=== PATIENT | male | born 1995 | race Caucasian/White ===

== ENCOUNTER 2016-11-14 18:28 | Observation (INO) | payer OTHER ==
[~2016-11-14] VITALS: Ht 175.3 cm; Wt 91.5 kg
[2016-11-14] VITALS (8 sets, daily range): BP systolic 96–120; BP diastolic 46–64; PULSE 65–75; TEMP 98.3–98.6
[2016-11-15 05:56] VITALS: BP 103/53; PULSE 93; TEMP 98
== END 2016-11-15 08:00 | disposition home or self-care (01) ==
LOC: JCC 18:28
DX: K35.80 Unspecified acute appendicitis (principal)
CPT/HCPCS: J0694; J1100; J1885; J2310; J2405; J2543; J2704; J7050; J7120

== ENCOUNTER 2016-11-22 23:08 | Observation (INO) | payer OTHER ==
[~2016-11-22] VITALS: Wt 91.3 kg
[2016-11-22] MEDS ORDERED: PERCOCET 325 MG1 TA2 PO (23:15)
[2016-11-22] MEDS ORDERED: ZOFRAN ODT4 MG PO (23:15)
[2016-11-23 00:49] LABS: BASO % 0.3 % (0.0-2.0); EOS % 0.1 % (0-4.0); GRAN % 78.7 % (42.2-75.2); HEMOGLOBIN 15.5 g/dl (13.5-18.0); LYMPH # 1.8 (1.2-3.4); LYMPH % 14.5 % (20.0-51.0); MEAN CELL VOLUME 87 fl (80.0-100.0); MEAN CORPUSCULAR HEMOGLOBIN 29 pg (27.0-31.0); MEAN CORPUSCULAR HGB CONC 33 g/dl (33.0-37.0); MEAN PLATELET VOLUME 10.3 fl (7.4-10.4); MONO # 0.8 (0.1-0.6); MONO % 6.1 % (1.7-9.3); PLATELET COUNT 240 K/mm3 (130-400); RED BLOOD COUNT 5.38 M/mm3 (4.20-5.60); REDCELL DISTRIBUTION WIDTH-CV 12.6 % (11.5-14.5); WHITE BLOOD COUNT 12.7 K/mm3 (4.8-10.8)
[2016-11-23 00:55] LABS: ADJUSTED CALCIUM 8.9 mg/dL (8.4-10.2); ALANINE AMINOTRANSFERASE 35 U/L (21-72); ALBUMIN 4.7 gm/dL (3.5-5.0); ALKALINE PHOSPHATASE 46 U/L (50-136); ANION GAP 12 mmol/L (7-16); BLOOD UREA NITROGEN 9 mg/dL (9-20); C-REACTIVE PROTEIN < 0.5 mg/dL (0.0-0.9); CALCIUM 9.5 mg/dL (8.4-10.2); CARBON DIOXIDE 25 mmol/L (22-30); CHLORIDE 100 mmol/L (98-107); GLUCOSE 115 mg/dL (74-106); LIPASE 155 U/L (23-300); SODIUM 137 mmol/L (137-145); TOTAL PROTEIN 7.7 gm/dL (6.4-8.2)
[2016-11-23 01:48] LABS: PH 5 (5-8); SQUAMOUS EPITHELIAL 0-2 /hpf; URINE APPEARANCE Clear; URINE BACTERIA None Seen /hpf; URINE BILIRUBIN Negative (NEGATIVE); URINE BLOOD Negative (NEGATIVE); URINE COLOR Yellow; URINE GLUCOSE Negative (NEGATIVE); URINE KETONE Negative (NEGATIVE); URINE RBC 0-2 /hpf; URINE UROBILINOGEN Negative (NEGATIVE); URINE WBC 0-2 /hpf
[2016-11-23 02:49] VITALS: BP 144/61; PULSE 63; TEMP 98.6
[2016-11-23 05:31] VITALS: BP 145/75; PULSE 61; TEMP 98.9
[2016-11-24] MEDS ORDERED: ULTRAM 50MG TAB50 MG PO (00:37)
== END 2016-11-23 09:20 | disposition home or self-care (01) ==
LOC: COL.ER 23:08 → SURG 11-23 02:08
PROVIDERS: Emergency Medicine
DX: R10.9 Unspecified abdominal pain (principal)
CPT/HCPCS: G0378; J1170; J1885; J2405; J2543; J7030; J7050

== ENCOUNTER 2016-11-23 21:32 | Inpatient (IN) | payer OTHER ==
[~2016-11-23] VITALS: Ht 177.8 cm; Wt 84.5 kg
[~2016-11-23 21:32] MED LIST: PERCOCET 325 MG1 TA2 PO; ZOFRAN ODT4 MG PO
[2016-11-23 22:08] LABS: BASO % 0.2 % (0.0-2.0); EOS % 0.3 % (0-4.0); GRAN # 9.7 (1.4-6.5); GRAN % 77.1 % (42.2-75.2); HEMATOCRIT 46.1 % (42.0-52.0); HEMOGLOBIN 15.4 g/dl (13.5-18.0); LYMPH # 1.9 (1.2-3.4); LYMPH % 15.3 % (20.0-51.0); MEAN CELL VOLUME 86 fl (80.0-100.0); MEAN CORPUSCULAR HEMOGLOBIN 29 pg (27.0-31.0); MEAN CORPUSCULAR HGB CONC 33 g/dl (33.0-37.0); MONO # 0.9 (0.1-0.6); MONO % 6.8 % (1.7-9.3); PLATELET COUNT 240 K/mm3 (130-400); RED BLOOD COUNT 5.38 M/mm3 (4.20-5.60); REDCELL DISTRIBUTION WIDTH-CV 12.6 % (11.5-14.5); WHITE BLOOD COUNT 12.6 K/mm3 (4.8-10.8)
[2016-11-23 22:20] LABS: ADJUSTED CALCIUM 9.1 mg/dL (8.4-10.2); ALBUMIN 4.7 gm/dL (3.5-5.0); BILIRUBIN,TOTAL 1.3 mg/dL (0.0-1.0); C-REACTIVE PROTEIN 0.8 mg/dL (0.0-0.9); CALCIUM 9.7 mg/dL (8.4-10.2); CREATININE, serum 0.99 mg/dL (0.66-1.25); POTASSIUM 3.8 mmol/L (3.4-5.0); TOTAL PROTEIN 7.9 gm/dL (6.4-8.2)
[2016-11-24] VITALS (12 sets, daily range): BP systolic 110–147; BP diastolic 59–86; PULSE 59–92; TEMP 98–99.2
[2016-11-24] MEDS ORDERED: ULTRAM 50MG TAB50 MG PO (00:37)
[2016-11-25 01:41] VITALS: BP 137/74; PULSE 98; TEMP 99.4
[2016-11-25 05:20] VITALS: BP 136/76; PULSE 91; TEMP 99.1
[2016-11-25 10:25] VITALS: BP 148/77; PULSE 79; TEMP 98.5
[2016-11-25 12:36] LABS: HEMATOCRIT 41.5 % (42.0-52.0); HEMOGLOBIN 13.9 g/dl (13.5-18.0); MEAN CELL VOLUME 87 fl (80.0-100.0); MEAN CORPUSCULAR HEMOGLOBIN 29 pg (27.0-31.0); MEAN CORPUSCULAR HGB CONC 34 g/dl (33.0-37.0); MEAN PLATELET VOLUME 9.9 fl (7.4-10.4); PLATELET COUNT 177 K/mm3 (130-400); REDCELL DISTRIBUTION WIDTH-CV 12.6 % (11.5-14.5); WHITE BLOOD COUNT 9.7 K/mm3 (4.8-10.8)
[2016-11-25 13:06] LABS: CALCIUM 9.1 mg/dL (8.4-10.2); CREATININE, serum 0.82 mg/dL (0.66-1.25); POTASSIUM 3.6 mmol/L (3.4-5.0)
[2016-11-25 13:53] VITALS: BP 130/72; PULSE 83; TEMP 97.7
[2016-11-25 18:19] VITALS: BP 154/78; PULSE 80; TEMP 98.7
[2016-11-25 21:18] VITALS: BP 133/75; PULSE 96; TEMP 99.6
[2016-11-26 02:18] VITALS: BP 112/74; PULSE 92; TEMP 99.4
[2016-11-26 05:58] VITALS: BP 122/80; PULSE 93; TEMP 99.9
[2016-11-26 06:12] LABS: ADD PATHOLOGY DIFF REVIEW NO
[2016-11-26 06:17] LABS: HEMATOCRIT 43.5 % (42.0-52.0); HEMOGLOBIN 14.2 g/dl (13.5-18.0); MEAN CELL VOLUME 87 fl (80.0-100.0); MEAN CORPUSCULAR HEMOGLOBIN 29 pg (27.0-31.0); MEAN CORPUSCULAR HGB CONC 33 g/dl (33.0-37.0); MEAN PLATELET VOLUME 9.9 fl (7.4-10.4); PLATELET COUNT 210 K/mm3 (130-400); RED BLOOD COUNT 4.99 M/mm3 (4.20-5.60); REDCELL DISTRIBUTION WIDTH-CV 12.6 % (11.5-14.5); WHITE BLOOD COUNT 5.6 K/mm3 (4.8-10.8)
[2016-11-26 06:28] LABS: CALCIUM 9.3 mg/dL (8.4-10.2); CREATININE, serum 1.01 mg/dL (0.66-1.25); POTASSIUM 3.6 mmol/L (3.4-5.0)
[2016-11-26 08:01] LABS: BAND 26 % (0-10); EOSINOPHIL 1 % (0-4); METAMYELOCYTE 1 % (0-0); MYELOCYTE 1 % (0-0); NEUTROPHILS 46 % (42.0-75.2); PLATELET ESTIMATE NORMAL (NORMAL); TOTAL CELLS COUNTED 100
[2016-11-26 10:34] VITALS: BP 133/77; PULSE 89; TEMP 98.4
[2016-11-26 14:20] VITALS: BP 139/84; PULSE 100; TEMP 98
[2016-11-26 17:35] VITALS: BP 135/86; PULSE 111; TEMP 97.8
[2016-11-26 21:59] VITALS: BP 132/81; PULSE 112; TEMP 97.9
[2016-11-27 01:22] VITALS: BP 123/70; PULSE 112; TEMP 99.4
[2016-11-27 05:58] VITALS: BP 132/86; PULSE 100; TEMP 98.9
[2016-11-27 06:41] LABS: HEMATOCRIT 43.4 % (42.0-52.0); HEMOGLOBIN 14.3 g/dl (13.5-18.0); MEAN CELL VOLUME 88 fl (80.0-100.0); MEAN CORPUSCULAR HEMOGLOBIN 29 pg (27.0-31.0); MEAN CORPUSCULAR HGB CONC 33 g/dl (33.0-37.0); MEAN PLATELET VOLUME 10.7 fl (7.4-10.4); PLATELET COUNT 196 K/mm3 (130-400); RED BLOOD COUNT 4.94 M/mm3 (4.20-5.60); REDCELL DISTRIBUTION WIDTH-CV 12.6 % (11.5-14.5); WHITE BLOOD COUNT 3.6 K/mm3 (4.8-10.8)
[2016-11-27 06:45] LABS: ANION GAP 12 mmol/L (7-16); BLOOD UREA NITROGEN 20 mg/dL (9-20); CALCIUM 9.3 mg/dL (8.4-10.2); CARBON DIOXIDE 36 mmol/L (22-30); CHLORIDE 91 mmol/L (98-107); CREATININE, serum 1.01 mg/dL (0.66-1.25); GLUCOSE 107 mg/dL (74-106); MAGNESIUM 2.6 mg/dL (1.6-2.3); POTASSIUM 3.1 mmol/L (3.4-5.0); SODIUM 139 mmol/L (137-145)
[2016-11-27 09:38] VITALS: BP 97/81; PULSE 110; TEMP 97.9
[2016-11-27 09:43] LABS: BAND 33 % (0-10); BASOPHIL 2 % (0-2); NEUTROPHILS 3 % (42.0-75.2); TOTAL CELLS COUNTED 100
[2016-11-27 09:44] LABS: PLATELET ESTIMATE NORMAL (NORMAL)
[2016-11-27 09:45] LABS: ADD PATHOLOGY DIFF REVIEW YES
[2016-11-27 12:12] LABS: TROPONIN-I < 0.012 ng/mL (0.000-0.034)
[2016-11-27 12:33] LABS: ADJUSTED CALCIUM 9.1 mg/dL (8.4-10.2); ALANINE AMINOTRANSFERASE 26 U/L (21-72); ALBUMIN 4.3 gm/dL (3.5-5.0); ALKALINE PHOSPHATASE 47 U/L (50-136); BILIRUBIN,TOTAL 1.6 mg/dL (0.0-1.0); CHOLESTEROL 133 mg/dL (120-200); TOTAL PROTEIN 7.8 gm/dL (6.4-8.2); TRIGLYCERIDE 87 mg/dL
[2016-11-27 14:00] VITALS: BP 122/71; PULSE 101; TEMP 98.3
[2016-11-27 17:35] VITALS: BP 105/57; PULSE 98; TEMP 97.7
[2016-11-27 22:37] VITALS: BP 111/74; PULSE 101; TEMP 98.5
[2016-11-28 01:56] VITALS: BP 116/73; PULSE 94; TEMP 98.6
[2016-11-28 06:16] VITALS: BP 120/80; PULSE 66; TEMP 97.5
[2016-11-28 08:13] LABS: PHOSPHOROUS 4.2 mg/dL (2.5-4.5)
[2016-11-28 09:39] VITALS: BP 127/77; PULSE 80; TEMP 98.2
[2016-11-28 10:52] LABS: CALCIUM 9.1 mg/dL (8.4-10.2); CREATININE, serum 0.99 mg/dL (0.66-1.25)
[2016-11-28 11:04] LABS: POTASSIUM 2.8 mmol/L (3.4-5.0)
[2016-11-28 13:15] VITALS: BP 115/65; PULSE 95; TEMP 98.5
[2016-11-28 17:52] VITALS: BP 105/79; PULSE 97; TEMP 98
[2016-11-28 23:23] VITALS: BP 111/84; PULSE 93; TEMP 97.7
[2016-11-29 06:09] VITALS: BP 113/65; PULSE 84; TEMP 98.2
[2016-11-29 07:39] LABS: CALCIUM 9.3 mg/dL (8.4-10.2); CREATININE, serum 0.93 mg/dL (0.66-1.25); MAGNESIUM 2.5 mg/dL (1.6-2.3); POTASSIUM 3.3 mmol/L (3.4-5.0)
[2016-11-29 09:33] VITALS: BP 126/78; PULSE 97; TEMP 97.8
[2016-11-29 16:56] VITALS: BP 126/85; PULSE 99; TEMP 98.9
[2016-11-29 22:30] VITALS: BP 136/74; PULSE 80; TEMP 96.8
[2016-11-30 01:21] VITALS: BP 130/74; PULSE 84; TEMP 97.7
[2016-11-30 06:47] LABS: CALCIUM 8.8 mg/dL (8.4-10.2); CREATININE, serum 0.84 mg/dL (0.66-1.25); MAGNESIUM 2.3 mg/dL (1.6-2.3); POTASSIUM 3.4 mmol/L (3.4-5.0)
[2016-11-30 08:53] LABS: PATHOLOGY DIFF REVIEW OK
[2016-11-30 09:03] VITALS: BP 105/93; PULSE 95; TEMP 98
[2016-11-30 13:37] VITALS: BP 121/88; PULSE 95; TEMP 98.1
[2016-11-30 17:17] VITALS: BP 110/68; PULSE 84; TEMP 98.8
[2016-11-30 21:58] VITALS: BP 120/71; PULSE 68; TEMP 98.1
[2016-12-01 00:34] VITALS: BP 121/77; PULSE 83; TEMP 98.5
[2016-12-01 06:09] VITALS: BP 115/83; PULSE 68; TEMP 98.5
[2016-12-01 06:43] LABS: CALCIUM 8.6 mg/dL (8.4-10.2); CREATININE, serum 0.75 mg/dL (0.66-1.25); PHOSPHOROUS 4.5 mg/dL (2.5-4.5); POTASSIUM 3.6 mmol/L (3.4-5.0)
== END 2016-12-01 10:15 | disposition home or self-care (01) | DRG 336 ==
LOC: COL.ER 21:32 → SURG 23:13
PROVIDERS: Emergency Medicine; Surgery
PROC: 0DNV4ZZ Release Mesentery, Percutaneous Endoscopic Approach (ICD-10-PCS; principal; 2016-11-24 12:00)
DX: K40.30 Unilateral inguinal hernia, with obstruction, without gangrene, not specified as recurrent (principal); K91.3 Postprocedural intestinal obstruction; E44.0 Moderate protein-calorie malnutrition
CPT/HCPCS: A4217; A9284; B4178; C1751; C1765; G0378; J0610; J1100; J1170; J1200; J1644; J1650; J1885; J2405; J2543; J2550; J2704; J2710; J2765; J3010; J3480; J7030; J7040; J7050; J7120; J7131; Q9967